=== PATIENT | female | born 1975 | race Caucasian/White ===

== ENCOUNTER 2016-07-28 10:10 | Emergency (ER) | payer SELFPAY ==
--- NOTE | 2016-07-28 10:52 | ERRECORD ---
[facility] EMERGENCY RECORD HPI ALLERGY (10:42 LLDO) CHIEF COMPLAINT: Patient presents for evaluation of itching, Denies swelling, Denies shortness of breath, Patient presents for evaluation of rash, Denies throat closing, Patient presents for evaluation of diffuse urticatia started earlier today and seems to be spreading even more as the day progresses. no resp s-sx. not sure what triggered. LOCATION: Symptoms are generalized. QUALITY: Dermal only. SEVERITY: Maximum severity of symptoms mild, Currently symptoms are mild. TIME COURSE: Sudden onset of symptoms, Symptoms are constant, Symptoms are worsening. ASSOCIATED WITH: Associated symptoms reviewed, No associated abdominal pain, Associated with anxiety, No associated cough, No associated chest pain, No associated fever, No associated neurological symptoms, Associated with rash, No associated stridor, No associated swelling, No associated vomiting, No associated wheezing, lots of stress at home now. EXACERBATED BY: Patient's condition exacerbated by nothing. RISK FACTORS: No known previous allergy reactions, No known Beta-estefany use. RELIEVED BY: Patient's condition relieved by nothing because patient has not tried anything for relief. ROS CONSTITUTIONAL: Negative constitutional review of systems. (10:45 LLDO) EYES: Negative eye review of systems, Historian denies eye pain, denies eye redness, denies eye discharge. (10:48 LLDO) ENT: Negative ears, nose, throat review of systems, Historian denies epistaxis, denies rhinorrhea, denies sinus pain, denies sore throat. (10:48 LLDO) CARDIOVASCULAR: Negative cardiovascular review of systems, Historian denies chest pain, no radiation, Historian denies diaphoresis, denies syncope. (10:48 LLDO) RESPIRATORY: Negative respiratory review of systems, Historian denies cough, denies shortness of breath, denies sputum. (10:48 LLDO) GI: Negative gastrointestinal review of systems, Historian denies abdominal pain, denies constipation, denies diarrhea, denies nausea, denies vomiting. (10:48 LLDO) GENITOURINARY FEMALE: Negative genitourinary review of systems, Historian denies dysuria, denies frequency, denies urgency. (10:48 LLDO) MUSCULOSKELETAL: Negative musculoskeletal review of systems, Historian denies arthralgias, denies back pain, denies injury, denies myalgias, denies neck pain. (10:48 LLDO) SKIN: Historian reports pruritis, reports rash, reports skin changes. (10:45 LLDO) NEUROLOGIC: Negative neurologic review of systems, Historian denies confusion, denies dizziness, denies focal weakness, denies &a-1R&a+25V*p+0X*c8495F*c202B*c15G*c2P*p-0X&a-25V&a+1R Name: Lindsey Maynard : 1975 F41 MedRec: [id number] AcctNum: [id number] Prepared: ThuJul 28, 2016 11:56 by Interface Page 1 of 4 pMD [facility] EMERGENCY RECORD mental status changes. (10:48 LLDO) HEMO/LYMPHATIC: Normal hematologic/lymphatic system review, Historian denies abnormal blood clotting, denies gum bleeding, denies petechiae. (10:48 LLDO) ALLERGIC/IMMUNOLOGIC: Normal allergy/immunologic system review, Historian denies eczema, denies environmental allergies, denies food allergies. (10:48 LLDO) PSYCHIATRIC: Negative psychiatric review of systems, Historian denies alcohol abuse, denies anxiety, denies depression, denies drug abuse, denies hallucinations. (10:48 LLDO) NOTES: All systems reviewed, negative except as described above. (10:45 LLDO) PAST MEDICAL HISTORY MEDICAL HISTORY: No past medical history, No past medical history. (ThuJul 28, 2016 10:22 JPER) FEMALE SURGICAL HISTORY: 1-17 VERIFIED, Surgical history of cholecystectomy, Surgical history of tubal ligation. (ThuJul 28, 2016 10:22 JPER) PSYCHIATRIC HISTORY: Notes: DENIES, Notes: DENIES. (ThuJul 28, 2016 10:22 JPER) SOCIAL HISTORY: Social History includes VERIFIED --17, Patient denies alcohol use, Patient denies drug use, Patient has no smoking history. (ThuJul 28, 2016 10:22 JPER) NOTES: Nursing records reviewed, Agree with nursing records, Old chart reviewed, Medication list reviewed. (10:47 LLDO) KNOWN ALLERGIES No Known Drug Allergies CURRENT MEDICATIONS (10:23 JPER) Zofran ODT: TABLET,DISINTEGRATING : Strength - 4 mg : ORAL Patient Dose: 1 tab(s) Oral every 6 hours PRN. Synthroid: TABLET : Strength - 100 mcg : ORAL Patient Dose: 1 tab(s) Oral once a day. Dyazide: CAPSULE : Strength - 37.5 mg-25 mg : ORAL Patient Dose: 1 cap(s) Oral See Notes.one a day if needed for edema. VITAL SIGNS VITAL SIGNS: BP: 134/62, Pulse: 84, Resp: 18, Temp: 98.7 (Tympanic), O2 sat: 99 on Room Air, Time: 07/28/2016 10:19. (10:19 JPER) BP: 119/70, Pulse: 80, Resp: 18, Temp: 98.6 (Tympanic), O2 sat: 99 on Room Air, Time: 07/28/2016 11:45. (11:45 JPER) &a-1R&a+25V*p+0X*b6820Q*c202B*c15G*c2P*p-0X&a-25V&a+1R Name: Lindsey Maynard : 1975 F41 MedRec: [id number] AcctNum: [id number] Prepared: ThuJul 28, 2016 11:56 by Interface Page 2 of 4 pMD [facility] EMERGENCY RECORD PHYSICAL EXAM CONSTITUTIONAL: Vital Signs Reviewed, Patient afebrile, Pulse normal, Blood pressure normal, Respiratory rate normal, Normal pulse oximetry, Patient appears, uncomfortable, from the itching, Patient appears pain free, Patient alert and oriented to person, place and time, Nursing notes reviewed. (10:45 LLDO) HEAD: Head exam normal, Head exam included findings of head atraumatic, normocephalic. (10:48 LLDO) EYES: Eye exam normal, Eye exam included findings of eyelids normal to inspection, Pupils equally round and reactive to light, Extraocular muscles intact. (10:48 LLDO) ENT: Ear exam normal, Nose exam normal, Pharynx exam normal, Uvula exam normal, Tonsil exam normal, Mouth exam normal, Sinus exam included findings of frontal sinuses normal, maxillary sinuses normal, no swelling of lips, tongue or the rest of the oropharynx. speech is unimpeded. (10:47 LLDO) NECK: Neck exam normal, Neck exam included findings of normal range of motion, Trachea midline, no meningeal signs, no tenderness. (10:48 LLDO) RESPIRATORY CHEST: Respiratory exam included findings of no respiratory distress, Breath sounds clear, No wheezing, No rales, Chest exam included findings of chest movement symmetrical, Chest expansion equal, no tenderness. (10:46 LLDO) CARDIOVASCULAR: Cardiovascular assessment normal, Cardiovascular exam included findings of heart rate regular rate and rhythm, Heart sounds normal. (10:48 LLDO) ABDOMEN FEMALE: Abdominal exam normal, Abdominal exam included findings of abdomen nontender, Bowel sounds normal, no peritoneal signs. (10:48 LLDO) BACK: Back exam normal, Back exam included findings of normal inspection, range of motion normal. (10:48 LLDO) UPPER EXTREMITY: Upper extremity exam normal, Upper extremity exam included findings of inspection normal, Range of motion normal. (10:48 LLDO) LOWER EXTREMITY: Lower extremity exam normal, Lower extremity exam included findings of inspection normal, Range of motion normal. (10:48 LLDO) NEURO: Neuro exam normal, Neuro exam findings include patient oriented to person, place and time, Speech normal, [place] coma scale 15. (10:48 LLDO) SKIN: Skin exam included findings of skin warm, dry, Rash present, No cellulitis present, DESCRIBED ABOVE. (10:45 LLDO) PSYCHIATRIC: Psychiatric exam normal, Psychiatric exam included findings of patient oriented to person place and time, Normal affect. (10:48 LLDO) MEDICATION ADMINISTRATION SUMMARY &a-1R&a+25V*p+0X*o3887S*c202B*c15G*c2P*p-0X&a-25V&a+1R Name: Lindsey Maynard : 1975 F41 MedRec: [id number] AcctNum: [id number] Prepared: ThuJul 28, 2016 11:56 by Interface Page 3 of 4 pMD [facility] EMERGENC[facility] RECORD Drug Name: Benadryl oral, Dose Ordered: 50 mg, Route: Oral, Status: Given, Time: 10:50 07/28/2016, Drug Name: methylPREDNISolone acetate, Dose Ordered: 80 mg, Route: Intramuscular, Status: Given, Time: 10:50 07/28/2016, Detailed record available in Medication Service section. PROBLEM LIST No recorded problems DIAGNOSIS (10:36 LLDO) FINAL: PRIMARY: URTICARIA UNSPECIFIED. PRESCRIPTION (10:37 LLDO) Benadryl oral: CAPSULE (HARD, SOFT, ETC.) : 25 mg : ORAL : Quantity: 1-2 Unit: cap(s) Route: ORAL Schedule: every 4 hours prn Dispense: 60 Unit: cap(s) May substitute. Refills: 1 . NOTES: No Refills. DISPOSITION PATIENT: Disposition Type: Discharge, Disposition: *Discharge Home. (10:36 LLDO) Patient left the department. (11:53 MINAL) Warren: MINAL=SHANKAR Dahl, Lyric LLDO=MD Ismael, Spencer &a-1R&a+25V*p+0X*q9896I*c202B*c15G*c2P*p-0X&a-25V&a+1R Name: Lindsey Maynard : 1975 F41 MedRec: [id number] AcctNum: [id number] Prepared: ThuJul 28, 2016 11:56 by Interface Page 4 of 4 pMD MTDD
[2016-07-28] MEDS ORDERED: diphenhydrAMINE HCl 25 MG CAP ONE (10:53)
--- NOTE | 2016-07-28 10:57 | PICIS ---
[facility] EMERGENCY RECORD TRIAGE (ThuJul 28, 2016 10:22 JPER) PATIENT: NAME: Lindsey Maynard, AGE: 41, GENDER: female, : Sat 1975, TIME OF GREET: ThuJul 28, 2016 10:11, PREFERRED LANGUAGE: [place], RACE: WHITE, ETHNICITY: Not or , ECODE BILLING MAP: [facility], SSN: [id number], Zip Code: [address], KG WEIGHT: 102.06, PHONE: , , , PERSON ID: [id number], PCP: OOT. (ThuJul 28, 2016 10:22 JPER) COMPLAINT: ALLERGIC REACTION. (ThuJul 28, 2016 10:22 JPER) ADMISSION: URGENCY: 3 Urgent, ADMISSION SOURCE: Home, TRANSPORT: Walk-in, BED: ED -03. (ThuJul 28, 2016 10:22 JPER) ASSESSMENT: Assessment: ALLERGIC TO UNKNOWN SUBSTANCE; HIVES TO RIGHT LEG ET HIP; NO RESP INVOLVEMENT. (ThuJul 28, 2016 10:22 JPER) PAIN: Location INTENSE TCHING. (ThuJul 28, 2016 10:22 JPER) SIRS SCORING: Heart Rate 55-109 (0), Temp range 96.8-101.1 (0), respiratory rate 12-24 (0), Mental Status altered: no (0). (ThuJul 28, 2016 10:22 JPER) TRIAGE SCREENING: Patient denies suicidal ideation, Patient denies presence of domestic violence. (ThuJul 28, 2016 10:22 JPER) PROVIDERS: TRIAGE NURSE: Lyric Dahl RN. (ThuJul 28, 2016 10:22 JPER) VITAL SIGNS: BP 134/62, Pulse 84, Resp 18, Temp 98.7, (Tympanic), O2 Sat 99, on Room Air, Time 07/28/2016 10:19. (10:19 JPER) PREVIOUS VISIT ALLERGIES: No Known Drug Allergies. (ThuJul 28, 2016 10:22 JPER) KNOWN ALLERGIES No Known Drug Allergies CURRENT MEDICATIONS (10:23 JPER) Zofran ODT: TABLET,DISINTEGRATING : Strength - 4 mg : ORAL Patient Dose: 1 tab(s) Oral every 6 hours PRN. Synthroid: TABLET : Strength - 100 mcg : ORAL Patient Dose: 1 tab(s) Oral once a day. Dyazide: CAPSULE : Strength - 37.5 mg-25 mg : ORAL Patient Dose: 1 cap(s) Oral See Notes.one a day if needed for edema. VITAL SIGNS VITAL SIGNS: BP: 134/62, Pulse: 84, Resp: 18, Temp: 98.7 (Tympanic), O2 sat: 99 on Room Air, Time: 07/28/2016 10:19. (10:19 JPER) BP: 119/70, Pulse: 80, Resp: 18, Temp: 98.6 (Tympanic), O2 sat: 99 on Room Air, Time: 07/28/2016 11:45. (11:45 JPER) NURSING ASSESSMENT: ALLERGIC REACTION (10:23 JPER) &a-1R&a+25V*p+0X*m5992M*c202B*c15G*c2P*p-0X&a-25V&a+1R Name: Lindsey Maynard : 1975 F41 MedRec: [id number] AcctNum: [id number] Prepared: ThuJul 28, 2016 12:01 by Interface Page 1 of 6 pMD [facility] EMERGENCY RECORD CONSTITUTIONAL: Patient arrives ambulatory, Gait steady, History obtained from patient, Patient appears, TEARFUL; INTENSE ITCHING, Patient cooperative, Patient alert, Oriented to person, place and time, Skin warm, Skin dry, Skin normal in color, Mucous membranes pink, Mucous membranes moist, Patient complains of ALLERGIC RX CAUSE UNKNOWN. ALLERGIC REACTION: Allergic reaction to unknown allergen, Allergic reaction symptoms include hives, Notes: RIGHT LEG ET HIP AREA; POSS MOVING TO UPPER EXTREMITIES. RESPIRATORY: Breath sounds clear, Respiratory assessment findings include respiratory effort easy, Respirations regular, Conversing normally, Neck and chest exam findings include trachea midline, Chest expansion equal, Chest movement symmetrical. SKIN: Skin assessment findings include skin warm, Skin dry, Skin normal in color, Inspection findings include redness, to RIGHT LEG ET THIGH. NOTES: Emotional support needed and given, Patient tolerated procedure well. NURSING PROCEDURE: DISCHARGE NOTE (11:45 JPER) DISCHARGE: Patient discharged to home, ambulating without assistance, family driving, accompanied by other family member, Summary of Care printed/ provided, Patient requested and was provided an electronic copy of Discharge Instructions, Transition record given to patient, Discharge instructions given to patient, Prescriptions given and instructions on side effects given, Above person(s) verbalized understanding of discharge instructions and follow-up care, Patient instructed not to drive home, Patient treated and evaluated by physician. BELONGINGS: Belongings remain with patient, Valuables remain with patient. NOTES: Emotional support needed and given, Patient tolerated procedure well. MEDICATION ADMINISTRATION SUMMARY Drug Name: Benadryl oral, Dose Ordered: 50 mg, Route: Oral, Status: Given, Time: 10:50 07/28/2016, Drug Name: methylPREDNISolone acetate, Dose Ordered: 80 mg, Route: Intramuscular, Status: Given, Time: 10:50 07/28/2016, Detailed record available in Medication Service section. MEDICATION SERVICE (10:50 LLDO) Benadryl oral: Order: Benadryl oral (diphenhydramine HCl) - Dose: 50 mg : Oral Schedule: Now Ordered by: Spencer Guevara MD Entered by: Spencer Guevara MD ThuJul 28, 2016 10:34 Documented as given by: Lyric Dahl RN ThuJul 28, 2016 10:50 &a-1R&a+25V*p+0X*v5486K*c202B*c15G*c2P*p-0X&a-25V&a+1R Name: Lindsey Maynard : 1975 F41 MedRec: [id number] AcctNum: [id number] Prepared: ThuJul 28, 2016 12:01 by Interface Page 2 of 6 D [facility] EMERGENCY RECORD Patient, Medication, Dose, Route and Time verified prior to administration. Amount given: 50MG, Site: Medication administered P.O., Correct patient, time, route, dose and medication confirmed prior to administration, Patient advised of actions and side-effects prior to administration, Allergies confirmed and medications reviewed prior to administration, Administered by ARNULFO CHAPARRO. methylPREDNISolone acetate: Order: methylPREDNISolone acetate (methylprednisolone acetate) - Dose: 80 mg : Intramuscular Schedule: Now Ordered by: Spencer Guevaar MD Entered by: Spencer Guevara MD ThuJul 28, 2016 10:35 Documented as given by: Lyric Dahl RN ThuJul 28, 2016 10:50 Patient, Medication, Dose, Route and Time verified prior to administration. IM medication, Amount given: 80MG, Medication administered to right hip, Correct patient, time, route, dose and medication confirmed prior to administration, Patient advised of actions and side-effects prior to administration, Allergies confirmed and medications reviewed prior to administration, Administered by ARNULFO CHAPARRO. HPI ALLERGY (10:42 LLDO) CHIEF COMPLAINT: Patient presents for evaluation of itching, Denies swelling, Denies shortness of breath, Patient presents for evaluation of rash, Denies throat closing, Patient presents for evaluation of diffuse urticatia started earlier today and seems to be spreading even more as the day progresses. no resp s-sx. not sure what triggered. LOCATION: Symptoms are generalized. QUALITY: Dermal only. SEVERITY: Maximum severity of symptoms mild, Currently symptoms are mild. TIME COURSE: Sudden onset of symptoms, Symptoms are constant, Symptoms are worsening. ASSOCIATED WITH: Associated symptoms reviewed, No associated abdominal pain, Associated with anxiety, No associated cough, No associated chest pain, No associated fever, No associated neurological symptoms, Associated with rash, No associated stridor, No associated swelling, No associated vomiting, No associated wheezing, lots of stress at home now. EXACERBATED BY: Patient's condition exacerbated by nothing. RISK FACTORS: No known previous allergy reactions, No known Beta-estefany use. RELIEVED BY: Patient's condition relieved by nothing because patient has not tried anything for relief. ROS CONSTITUTIONAL: Negative constitutional review of systems. (10:45 LLDO) EYES: Negative eye review of systems, Historian denies eye pain, denies eye redness, denies eye discharge. (10:48 LLDO) &a-1R&a+25V*p+0X*l7522B*c202B*c15G*c2P*p-0X&a-25V&a+1R Name: Lidnsey Maynard : 1975 F41 MedRec: [id number] AcctNum: [id number] Prepared: ThuJul 28, 2016 12:01 by Interface Page 3 of 6 pMD [facility] EMERGENCY RECORD ENT: Negative ears, nose, throat review of systems, Historian denies epistaxis, denies rhinorrhea, denies sinus pain, denies sore throat. (10:48 LLDO) CARDIOVASCULAR: Negative cardiovascular review of systems, Historian denies chest pain, no radiation, Historian denies diaphoresis, denies syncope. (10:48 LLDO) RESPIRATORY: Negative respiratory review of systems, Historian denies cough, denies shortness of breath, denies sputum. (10:48 LLDO) GI: Negative gastrointestinal review of systems, Historian denies abdominal pain, denies constipation, denies diarrhea, denies nausea, denies vomiting. (10:48 LLDO) GENITOURINARY FEMALE: Negative genitourinary review of systems, Historian denies dysuria, denies frequency, denies urgency. (10:48 LLDO) MUSCULOSKELETAL: Negative musculoskeletal review of systems, Historian denies arthralgias, denies back pain, denies injury, denies myalgias, denies neck pain. (10:48 LLDO) SKIN: Historian reports pruritis, reports rash, reports skin changes. (10:45 LLDO) NEUROLOGIC: Negative neurologic review of systems, Historian denies confusion, denies dizziness, denies focal weakness, denies mental status changes. (10:48 LLDO) HEMO/LYMPHATIC: Normal hematologic/lymphatic system review, Historian denies abnormal blood clotting, denies gum bleeding, denies petechiae. (10:48 LLDO) ALLERGIC/IMMUNOLOGIC: Normal allergy/immunologic system review, Historian denies eczema, denies environmental allergies, denies food allergies. (10:48 LLDO) PSYCHIATRIC: Negative psychiatric review of systems, Historian denies alcohol abuse, denies anxiety, denies depression, denies drug abuse, denies hallucinations. (10:48 LLDO) NOTES: All systems reviewed, negative except as described above. (10:45 LLDO) PAST MEDICAL HISTORY MEDICAL HISTORY: No past medical history, No past medical history. (ThuJul 28, 2016 10:22 JPER) FEMALE SURGICAL HISTORY: 07-28-17 VERIFIED, Surgical history of cholecystectomy, Surgical history of tubal ligation. (ThuJul 28, 2016 10:22 JPER) PSYCHIATRIC HISTORY: Notes: DENIES, Notes: DENIES. (ThuJul 28, 2016 10:22 JPER) SOCIAL HISTORY: Social History includes VERIFIED --17, Patient denies alcohol use, Patient denies drug use, Patient has no smoking history. (ThuJul 28, 2016 10:22 JPER) NOTES: Nursing records reviewed, Agree with nursing records, Old chart reviewed, Medication list reviewed. (10:47 LLDO) PHYSICAL EXAM &a-1R&a+25V*p+0X*t6940S*c202B*c15G*c2P*p-0X&a-25V&a+1R Name: Lindsey Maynard : 1975 F41 MedRec: [id number] AcctNum: [id number] Prepared: ThuJul 28, 2016 12:01 by Interface Page 4 of 6 pMD [facility] EMERGENCY RECORD CONSTITUTIONAL: Vital Signs Reviewed, Patient afebrile, Pulse normal, Blood pressure normal, Respiratory rate normal, Normal pulse oximetry, Patient appears, uncomfortable, from the itching, Patient appears pain free, Patient alert and oriented to person, place and time, Nursing notes reviewed. (10:45 LLDO) HEAD: Head exam normal, Head exam included findings of head atraumatic, normocephalic. (10:48 LLDO) EYES: Eye exam normal, Eye exam included findings of eyelids normal to inspection, Pupils equally round and reactive to light, Extraocular muscles intact. (10:48 LLDO) ENT: Ear exam normal, Nose exam normal, Pharynx exam normal, Uvula exam normal, Tonsil exam normal, Mouth exam normal, Sinus exam included findings of frontal sinuses normal, maxillary sinuses normal, no swelling of lips, tongue or the rest of the oropharynx. speech is unimpeded. (10:47 LLDO) NECK: Neck exam normal, Neck exam included findings of normal range of motion, Trachea midline, no meningeal signs, no tenderness. (10:48 LLDO) RESPIRATORY CHEST: Respiratory exam included findings of no respiratory distress, Breath sounds clear, No wheezing, No rales, Chest exam included findings of chest movement symmetrical, Chest expansion equal, no tenderness. (10:46 LLDO) CARDIOVASCULAR: Cardiovascular assessment normal, Cardiovascular exam included findings of heart rate regular rate and rhythm, Heart sounds normal. (10:48 LLDO) ABDOMEN FEMALE: Abdominal exam normal, Abdominal exam included findings of abdomen nontender, Bowel sounds normal, no peritoneal signs. (10:48 LLDO) BACK: Back exam normal, Back exam included findings of normal inspection, range of motion normal. (10:48 LLDO) UPPER EXTREMITY: Upper extremity exam normal, Upper extremity exam included findings of inspection normal, Range of motion normal. (10:48 LLDO) LOWER EXTREMITY: Lower extremity exam normal, Lower extremity exam included findings of inspection normal, Range of motion normal. (10:48 LLDO) NEURO: Neuro exam normal, Neuro exam findings include patient oriented to person, place and time, Speech normal, [place] coma scale 15. (10:48 LLDO) SKIN: Skin exam included findings of skin warm, dry, Rash present, No cellulitis present, DESCRIBED ABOVE. (10:45 LLDO) PSYCHIATRIC: Psychiatric exam normal, Psychiatric exam included findings of patient oriented to person place and time, Normal affect. (10:48 LLDO) EVENTS TRANSFER: Triage to Emergency Main ED -03. (ThuJul 28, 2016 10:22 JPER) &a-1R&a+25V*p+0X*w4554T*c202B*c15G*c2P*p-0X&a-25V&a+1R Name: Lindsey Maynard : 1975 F41 MedRec: [id number] AcctNum: [id number] Prepared: ThuJul 28, 2016 12:01 by Interface Page 5 of 6 pMD [facility] EMERGENCY RECORD Removed from Emergency Main ED -03. (11:53 JPER) PROBLEM LIST No recorded problems DIAGNOSIS (10:36 LLDO) FINAL: PRIMARY: URTICARIA UNSPECIFIED. DISPOSITION PATIENT: Disposition Type: Discharge, Disposition: *Discharge Home. (10:36 LLDO) Patient left the department. (11:53 JPER) INSTRUCTION (10:50 LLDO) DISCHARGE: URTICARIA. FOLLOWUP: Follow up with Primary Care Physician as needed. SPECIAL: Return here immediately for any trouble swallowing, speaking or breathing. Follow-up with your PCP. PRESCRIPTION (10:37 LLDO) Benadryl oral: CAPSULE (HARD, SOFT, ETC.) : 25 mg : ORAL : Quantity: 1-2 Unit: cap(s) Route: ORAL Schedule: every 4 hours prn Dispense: 60 Unit: cap(s) May substitute. Refills: 1 . NOTES: No Refills. IMAGING (11:48 JPER) *DISCHARGE INSTRUCTIONS RECEIPT: Image captured from scanner. *SUPPLY CHARGE SHEET: Image captured from scanner. ADMIN DIGITAL SIGNATURE: MD Guevara Lloyd. (10:48 LLDO) MD Guevara Lloyd. (10:50 LLDO) SHANKAR Dahl Jana. (11:51 JPESTEVAN) Warren: MINAL=SHANKAR Dahl Jana LLDO=MD Guevara Lloyd &a-1R&a+25V*p+0X*m5973K*c202B*c15G*c2P*p-0X&a-25V&a+1R Name: Lindsey Maynard : 1975 F41 MedRec: [id number] AcctNum: [id number] Prepared: ThuJul 28, 2016 12:01 by Interface Page 6 of 6 pMD [facility] MEDICATION RECONCILIATION You were seen in the Emergency Department on: ThuJul 28, 2016 KNOWN ALLERGIES No Known Drug Allergies MEDICATIONS GIVEN WHILE IN THE EMERGENCY DEPARTMENT Benadryl oral (diphenhydramine HCl) - Dose: 50 milligram(s) : Oral methylPREDNISolone acetate (methylprednisolone acetate) - Dose: 80 milligram(s) : Intramuscular HOME MEDICATIONS CONTINUE PRESCRIBED Synthroid : TABLET : Strength - 100 mcg : ORAL Continue as prescribed Patient had been takin tab(s) Oral once a day. Zofran ODT : TABLET,DISINTEGRATING : Strength - 4 mg : ORAL Continue as prescribed Patient had been takin tab(s) Oral every 6 hours PRN. HOLD MEDICATION UNTIL SEEN BY YOUR PMD Dyazide : CAPSULE : Strength - 37.5 mg-25 mg : ORAL Hold medication until seen by your PMD Patient had been takin cap(s) Oral See Notes. Comment: one a day if needed for edema. Notes from the emergency department Reviewed with patient Reviewed with patient PRESCRIPTIONS (1) &a-1R&a+25V*p+0X*g4915B*c202B*c15G*c2P*p-0X&a-25V&a+1R Name: Lindsey Maynard : 1975 F41 MedRec: [id number] AcctNum: [id number] Prepared: ThuJul 28, 2016 12:01 by Interface [facility]
== END 2016-07-28 11:45 | disposition home or self-care (01) ==
LOC: MADERS 10:10
DX: L50.9 Urticaria, unspecified (principal); Z90.49 Acquired absence of other specified parts of digestive tract; Z98.51 Tubal ligation status; Z79.899 Other long term (current) drug therapy
CPT/HCPCS: 96372; J1040

== ENCOUNTER 2017-08-10 21:26 | Emergency (ER) | payer SELFPAY ==
[2017-08-10] MEDS ORDERED: Ondansetron ODT 4 MG TAB ONE (22:30)
[2017-08-10] MEDS ORDERED: Ketorolac Tromethamine 60 MG/2 ML VIAL ONE (22:31)
--- NOTE | 2017-08-10 22:52 | RAD ---
PA AND LATERAL CHEST RADIOGRAPH: Date: 08-10-17 History: Cough, congestion for four days. Comparison: None. FINDINGS: Cardiac silhouette and pulmonary vasculature are within normal limits. The lungs are clear. Osseous s tructures are intact. IMPRESSION: No acute cardiopulmonary process. POS: [facility]
== END 2017-08-10 22:55 | disposition home or self-care (01) ==
LOC: MADERS 21:26
DX: J11.1 Influenza due to unidentified influenza virus with other respiratory manifestations (principal)
CPT/HCPCS: 71046; 96372; J1885; Q0162

== ENCOUNTER 2018-03-01 17:28 | Emergency (ER) | payer SELFPAY ==
--- NOTE | 2018-03-01 20:57 | CT ---
NONCONTRAST CT BRAIN: INDICATIONS: Headache for a few days without trauma or loss of consciousness. COMPARISON: None. FINDINGS: No acute infarct, hemorrhage, or hydrocephalus is present. The septum pellucidum and third ventricle are midline. The paranasal sinuses and visualized mastoid air cells are clear. The skull is intact . IMPRESSION: No acute intracranial abnormality. POS: [facility]
== END 2018-03-01 21:10 | disposition short-term general hospital (02) ==
LOC: MADERS 17:28
DX: R51 Headache (principal); F17.210 Nicotine dependence, cigarettes, uncomplicated
CPT/HCPCS: 70450

== ENCOUNTER 2018-07-16 09:51 | Emergency (ER) | payer SELFPAY | END 2018-07-16 10:20 | disposition left against medical advice (07) | LOC: MADERS 09:51 | DX: M54.5 Low back pain (principal); Z87.891 Personal history of nicotine dependence; Z79.899 Other long term (current) drug therapy | CPT/HCPCS: 99283 ==